=== PATIENT | male | born 1950 | race Caucasian/White ===

== ENCOUNTER 2016-07-11 09:00 | Inpatient (IN) ==
[2016-07-06 12:47] LABS: Basophils # (Auto) 0 K/mcL (0.0-0.3); Basophils % (Auto) 0.2 % (0.0-2.0); Eosinophils # (Auto) 0.2 K/mcL (0.0-0.7); Granulocytes % (Auto) 60.9 % (38.0-78.0); Lymphocytes # (Auto) 2.4 K/mcL (1.5-4.8); Lymphocytes % (Auto) 26.8 % (15.5-49.0); Mean Cell Volume 93.1 fL (80.0-100.0); Mean Corpuscular Hemoglobin 30.7 pg (26.0-34.0); Monocytes # (Auto) 0.9 K/mcL (0.1-0.9); Monocytes % (Auto) 10.1 % (1.0-9.0); Platelet Count 280 K/mcL (140-440); RBC 4.49 M/mcL (4.50-5.90); Red Cell Distribution Width 14.4 % (11.5-14.5)
[2016-07-06 12:57] LABS: Appearance,Urine HAZY; Bacteria,Urine FEW /hpf (0); Bilirubin,Urine NEG (NEG); Color,Urine YELLOW; Glucose,Urine (UA) NEGATIVE (NEG); Leukocyte Esterase,Urine 25 /uL (NEG); Mucus,Urine FEW /hpf (0); Nitrate,Urine NEG (NEG); Protein,Urine NEG (NEG); Specific Gravity,Urine 1.017 (1.000-1.035); Urine Blood NEG mg/dL (<0.03); Urine Hyaline Cast 3 /lpf (0-2); Urine RBC 2 /hpf (0-1); Urine Squamous Epithelial Cell 0 /hpf (0-4); Urine WBC 7 /hpf (0-4); Urobilinogen,Urine NEG (NEG)
[2016-07-06 13:58] LABS: Blood Urea Nitrogen 20 mg/dl (8-23)
[~2016-07-11 09:00] MED LIST: CELECOXIB 200 MG CAPSULE PO SCH; PREGABALIN 150 MG CAPSULE PO SCH; ceFAZolin 1 GM VIAL IV SCH; oxyCODONE 10 MG TAB.ER.12H PO SCH
[2016-07-11 10:08] LABS: Appearance,Urine CLEAR; Bilirubin,Urine NEG (NEG); Color,Urine YELLOW; Glucose,Urine (UA) NEGATIVE (NEG); Leukocyte Esterase,Urine NEG /uL (NEG); Nitrate,Urine NEG (NEG); Protein,Urine NEG (NEG); Specific Gravity,Urine 1.019 (1.000-1.035); Urine Blood NEG mg/dL (<0.03); Urobilinogen,Urine NEG (NEG)
[2016-07-11] MEDS ORDERED: SCOPOLAMINE 1 PATCH PATCH TOPICAL ONE (12:41)
[2016-07-11] MEDS ORDERED: LIDOCAINE HCL/PF 100 MG/5 ML SYRINGE IV ONE (13:00)
[2016-07-11] MEDS ORDERED: PROPOFOL 200 MG/20 ML VIAL IV ONE (13:00)
[2016-07-11] MEDS ORDERED: TRANEXAMIC ACID 1,000 MG/10 ML VIAL IV ONE (13:00)
[2016-07-11] MEDS ORDERED: METOCLOPRAMIDE 10 MG/2 ML VIAL IV ONE (13:00)
[2016-07-11] MEDS ORDERED: KETAMINE 100 MG/ML ML IV ONE (13:00)
[2016-07-11] MEDS ORDERED: ONDANSETRON 4 MG/2 ML VIAL IV ONE (13:00)
[2016-07-11] MEDS ORDERED: DEXAMETHASONE 10 MG/ML VIAL IV ONE (13:00)
[2016-07-11] MEDS ORDERED: ROPIVACAINE HCL/PF 30 ML VIAL IJ ONE (13:00)
[2016-07-11] MEDS ORDERED: GLYCOPYRROLATE 0.2 MG/ML VIAL IV ONE (13:00)
[2016-07-11] MEDS ORDERED: MIDAZOLAM 5 MG/5 ML VIAL IV ONE (13:00)
[2016-07-11] MEDS ORDERED: PROMETHAZINE 25 MG/ML VIAL IV ONE (13:00)
[2016-07-11] MEDS ORDERED: fentaNYL 100 MCG/2 ML VIAL IV ONE ×2 (13:00→14:40)
[2016-07-11] MEDS ORDERED: GENTAMICIN SULFATE 800 MG/20 ML VIAL IR ONE (14:10)
[2016-07-11] MEDS ORDERED: IPRATROPIUM/ALBUTEROL 3 ML AMPUL.NEB NEB PRN (14:40)
[2016-07-11] MEDS ORDERED: ePHEDrine 50 MG/ML AMPUL IV PRN (14:40)
[2016-07-11] MEDS ORDERED: fentaNYL 100 MCG/2 ML VIAL IV PRN (14:40)
[2016-07-11] MEDS ORDERED: BENZOCAINE/MENTHOL 1 LOZENGE PO PRN ×2 (14:40→15:22)
[2016-07-11] MEDS ORDERED: METHOCARBAMOL 1,000 MG/10 ML VIAL IV PRN (14:40)
[2016-07-11] MEDS ORDERED: PROMETHAZINE 25 MG/ML VIAL IV PRN ×2 (14:40→15:22)
[2016-07-11] MEDS ORDERED: KETOROLAC 15 MG/ML VIAL IV ONE (14:40)
[2016-07-11] MEDS ORDERED: MEPERIDINE 25 MG/ML SYRINGE IV PRN (14:40)
[2016-07-11] MEDS ORDERED: LACTATED RINGERS 1,000 ML IV SCH (14:45)
--- NOTE | 2016-07-11 15:20 | Brief Operative Note ---
Date of procedure: 07/11/16 Pre-op diagnosis: left shoulder advanced oa, biceps tendonitis Post-op diagnosis: other (with rotator cuff tear) Procedure: left total shoulder arthroplasty, biceps tenodesis, rotator cuff repair Grafts/Implants: Yes Anesthesia: GETA Complications: none Surgeon: Hal Dempsey Cpc: Kleber Brooke Estimated blood loss (cc): 200 Specimens Removed/Pathology: none sent Condition: stable Disposition: PACU
[2016-07-11] MEDS ORDERED: ONDANSETRON ODT 4 MG TABLET SL PRN (15:22)
[2016-07-11] MEDS ORDERED: MAGNESIUM HYDROXIDE 30 ML ORAL.SUSP PO PRN (15:22)
[2016-07-11] MEDS ORDERED: METHOCARBAMOL 750 MG TABLET PO PRN (15:22)
[2016-07-11] MEDS ORDERED: ONDANSETRON 4 MG/2 ML VIAL IV PRN (15:22)
[2016-07-11] MEDS ORDERED: POLYETHYLENE GLYCOL 3350 17 GM PACKET PO PRN (15:22)
[2016-07-11] MEDS ORDERED: FLEETS ADULT ENEMA PR PRN (15:22)
[2016-07-11] MEDS ORDERED: HYDROmorphone 2 MG/ML SYRINGE IV PRN (15:22)
[2016-07-11] MEDS ORDERED: KETOROLAC 15 MG/ML VIAL IV PRN (15:22)
[2016-07-11] MEDS ORDERED: BISACODYL 10 MG SUPP.RECT PR PRN (15:22)
--- NOTE | 2016-07-11 15:22 | Discharge Summary ---
Ortho Discharge Plan - General - Patient Instructions Diet: Regular Diet Activity: non weight bearing Dressing Care: May shower in 2 days - Follow Up Plan Disposition: Home, Self-Care Prognosis: Good Rehab Potential: Good I certify that the patient requires SNF services: No Overall status at discharge: patient is progressing back to baseline
[2016-07-11] MEDS ORDERED: TRANEXAMIC ACID 1,000 MG/10 ML VIAL IV SCH (15:28)
[2016-07-11] MEDS ORDERED: ACETAMINOPHEN 1,000 MG/100 ML BOTTLE IV SCH (16:00)
--- NOTE | 2016-07-11 16:45 | XRay Report ---
CLINICAL INFORMATION: Postop total shoulder prostheses COMPARISON: None. FINDINGS: Shoulder prostheses is anatomically aligned. No osseous abnormality. Soft tissue swelling seen as expected. IMPRESSION: Negative Interpreted and Authenticated by: Hal Suárez 07/11/16
--- NOTE | 2016-07-11 17:18 | Operative Note ---
DATE OF OPERATION: 07/11/2016 PREOPERATIVE DIAGNOSES: 1. Left shoulder osteoarthritis. 2. Left shoulder proximal biceps tendinitis. 3. Left shoulder acromioclavicular joint osteoarthritis. POSTPERATIVE DIGNOSES: 1. Left shoulder osteoarthritis. 2. Left shoulder proximal biceps tendinitis. 3. Left shoulder acromioclavicular joint osteoarthritis. 4. Rotator cuff tear. PROCEDURE: 1. Left total shoulder arthroplasty. 2. Left shoulder proximal biceps soft tissue tenodesis. 3. Left shoulder distal clavicle excision, open. 4. Left shoulder open rotator cuff repair. SURGEON: González Dempsey M.D. SUPPORT ASSOCIATE SURGEON: Kleber Brooke PA-C. ANESTHESIA: General. ESTIMATED BLOOD LOSS: 200 mL. COMPLICATIONS: None noted. SPECIMENS REMOVED: None. DRAINS: None. IMPLANTS: DePuy CMW2 bone cement 20 grams; DePuy [employer] [place] Peg Glenoid Premieron X-Linked polyethylene size 52; [employer] Unite [place] standard stem size 14; DePuy [employer] Unite standard humeral head size 52 x 18; DePuy [employer] Unite anatomic proximal body 136 degrees size 14 Porocoat; Arthrex 5.5 BioComposite corkscrew FT anchor x1; Arthrex 3.5 mm Peek PushLock x3. INDICATIONS: The patient has had a long-standing history of worsening pain in the shoulder that has failed conservative treatment. Radiographs have confirmed advanced degenerative joint disease. After a long discussion about treatment options, the patient elected to proceed with a total shoulder arthroplasty. The risks and benefits were discussed with the patient in detail including, but not limited to, the risks of anesthesia, problems with the heart or lungs related to anesthesia, infection, compromise or injury to the nerves and blood vessels, deep venous thrombosis, pulmonary embolism, pneumonia, continued pain after surgery, worsening pain or symptoms after surgery, swelling, loss of motion, instability, fracture, arm length discrepancy, and need for repeat surgery. DESCRIPTION OF PROCEDURE: The patient was seen in the pre-anesthesia waiting room where all questions were answered and the correct side and site were identified and marked. The patient was transferred to the operating room and administered the anesthetic and given pre-operative antibiotics. A time-out was then called. The patient was placed in the modified beach chair position with all prominences well padded. The extremity was prepped and draped from the fingers up to the neck. A standard deltopectoral skin incision was created. We dissected up to the acromioclavicular joint. We placed Sanchez retractors. We split the acromioclavicular joint and dissected about 2 cm medially on the distal clavicle and subperiosteally elevated anteriorly and posteriorly. We used the oscillating saw and removed about 7 mm of bone from the distal clavicle. This was removed. All bleeding was controlled with Bovie electrocautery, and we used a #1 Vicryl to suture the fascia overlying the top into the capsule. Dissection was carried down to the deltopectoral groove and the cephalic vein was isolated medially and retracted laterally with the deltoid. Retractors were placed and the coracobrachialis was split up to the coracoacromial ligament allowing retraction of the conjoined tendon. We split the subscapularis 1 cm medial to the bicipital groove and extended the split into the rotator interval. We visualized the rotator cuff and it was found to have a nondisplaced tear of the supraspinatus tendon with no significant retraction. It was about 90% on the bursal side. I elected to proceed with repair and felt this was a repairable tear rather than proceeding with a reverse total shoulder arthroplasty. We used a bur to scuff up the bone. We then placed one 5.5 BioComposite corkscrew FT anchor medially. We brought sutures up with a free needle into the cuff. We tied this down along the medial row. We then placed three 3.5 mm Peek PushLocks along the lateral row securing the repair down nicely. This was tagged for later repair. The biceps was cut and a soft tissue tenodesis was performed into the anterior shoulder with #2 FiberWire. A capsular release was performed in a posterior subperiosteal direction along the humerus. The humeral head was then dislocated. We established intramedullary access and hand reamed up to get good cortical chatter with the digiSchooluy JoGuru AP total shoulder instrumentation. We then used the intramedullary guide and set to about 30 degrees of retroversion. The proximal humerus cut was performed and osteophytes were removed. A metal protector plate was then placed. Attention was then turned to the glenoid. Retractors were placed for optimal visualization and the labrum was excised in its entirety. A centralizing Steinmann pin was placed just into the posterior inferior quadrant in a standard fashion. We reamed over the pin to remove all the cartilage and get to a good base for the prosthesis. The drill was then placed over for the central peg. The glenoid was sized and surface was inspected to confirm conformity. The template base-plate was used to drill the three additional pegs, anchoring each with the anti-rotation peg. All bleeding was stopped with epinephrine soaked sponges. Next, we then cemented the anchor peg glenoid with DBX bone paste placed around the anchor peg and Palacos cement in the three additional peg holes. We allowed the cement to harden and checked the stability and placement of the glenoid. Attention was then turned back to the humerus. We set version and broached up to a stable implant. The humeral head trial was placed and good tension, motion, and stability were obtained at this point. Trials were removed and the final press fit humeral prosthesis was impacted into place with measured version. A final check confirmed adequate motion, tension, and stability. We irrigated with 3 liters of antibiotic saline and closed the subscapularis with #2 FiberWire. We irrigated again and closed the deltopectoral interval with several 0 Vicryl figure of eight sutures. The subcutaneous layer was closed with 2-0 Vicryl and the skin was closed with 4-0 Monocryl in a subcuticular fashion. A sterile pressure dressing was applied and the patient was placed into an abduction sling. All needle and sponge counts were correct. The patient was transferred to the recovery room in stable condition. Cleve Job ID: [id number] Doc ID: [id number] González Dempsey MD
[2016-07-11] MEDS: 0.9 % SODIUM CHLORIDE 1,000 ML IV SCH (17:35)
[2016-07-11] MEDS: FERROUS SULFATE 325 MG TABLET PO SCH (17:50)
[2016-07-11] MEDS: DOCUSATE SODIUM 100 MG CAPSULE PO SCH (20:29)
[2016-07-11] MEDS: ceFAZolin 1 GM VIAL IV SCH (20:29)
[2016-07-11] MEDS: ASPIRIN 81 MG TAB.CHEW CHEWED SCH (20:29)
[2016-07-11] MEDS: METOPROLOL TARTRATE 25 MG TABLET PO SCH (20:29)
[2016-07-11] MEDS ORDERED: SIMVASTATIN 20 MG TABLET PO SCH (21:00)
[2016-07-11] MEDS ORDERED: SENNOSIDES 1 TABLET PO SCH (21:00)
[2016-07-11] MEDS: 0.9 % SODIUM CHLORIDE 10 ML SYRINGE IV SCH (21:17)
[2016-07-12] MEDS: 0.9 % SODIUM CHLORIDE 1,000 ML IV SCH ×3 (00:39→06:30)
[2016-07-12] MEDS: HYDROcodone/APAP 10/325MG TABLET PO PRN ×2 (04:01→08:14)
[2016-07-12] MEDS: ceFAZolin 1 GM VIAL IV SCH (04:04)
[2016-07-12] MEDS: 0.9 % SODIUM CHLORIDE 10 ML SYRINGE IV SCH (05:36)
--- NOTE | 2016-07-12 07:20 | Orthopedic Progress Note ---
Subjective Patient information: Note initiated : 07/12/16 at 7:19 am Service Date, if different from initiated Date: [] Patient: Markel Arrieta 66 y/o M admitted on 07/11/16 for Left Total Shoulder Arthroplasty, DCE and Possible. Chief Complaint: [] Principal diagnosis: left total shoulder arthroplasty Interval history: Doing great. No pain, ready for DC home Objective Vital signs: Vital Signs Temp Pulse Resp BP Pulse Ox 07/12/16 06:36 95.8 F L 18 120/69 95 07/12/16 04:00 97.7 F 81 18 127/73 94 07/11/16 22:51 97.9 F 71 20 123/69 95 07/11/16 20:28 76 134/72 97 07/11/16 20:00 96 07/11/16 19:28 73 113/75 96 07/11/16 18:58 70 124/74 98 07/11/16 18:28 71 128/73 98 07/11/16 18:13 61 103/70 97 07/11/16 17:57 73 130/76 97 07/11/16 17:42 79 134/87 97 07/11/16 17:20 79 13 124/75 96 07/11/16 17:17 75 12 144/73 95 07/11/16 17:02 72 11 L 132/86 96 07/11/16 16:47 72 12 139/81 95 07/11/16 16:32 71 10 L 124/82 96 07/11/16 16:17 77 10 L 122/67 95 07/11/16 16:02 78 10 L 114/73 95 07/11/16 15:49 97.3 F L 80 11 L 146/106 96 07/11/16 10:15 98.0 F 60 18 146/79 97 Intake and Output 07/11/16 07/12/16 07/12/16 21:59 05:59 13:59 Intake Total 2300 / 2300 1640 / 1640 Output Total 600 / 600 350 / 350 Balance 2300 / 2300 1040 / 1040 -350 / -350 Intake: IV 1000 / 1000 Sodium Chloride 0.9% 1, 1000 / 1000 000 ml @ 125 mls/hr IV . Q8H [facility] Rx#:[id number] Oral 640 / 640 IV - Manual Only 2300 / 2300 Output: Void Amount 600 / 600 350 / 350 Other: Weight 241 lb Intake & Output: Intake & Output 07/11/16 07/12/16 07/12/16 21:59 05:59 13:59 Intake Total 2300 / 2300 1640 / 1640 Output Total 600 / 600 350 / 350 Balance 2300 / 2300 1040 / 1040 -350 / -350 Weight 241 lb Intake: IV 1000 / 1000 Sodium Chloride 0.9% 1, 1000 / 1000 000 ml @ 125 mls/hr IV . Q8H [facility] Rx#:[id number] Oral 640 / 640 IV - Manual Only 2300 / 2300 Output: Void Amount 600 / 600 350 / 350 Incision: Yes clean and dry Dressing: Yes clean, Yes dry, Yes intact, Yes splint in place Weight bearing status: non Neurological exam IM: Yes alert, Yes oriented X3, Yes motor sensory intact, Yes neurovascular intact Extremities exam IM: No calf tenderness, Yes normal capillary refill, No John' s sign, Yes neurovascular intact - Periperhal Pulses Peripheral pulses: 2+: radial (L), radial (R) - Labs CBC & BMP: 07/12/16 05:35 07/06/16 10:18 Labs: 07/12/16 07/06/16 05:35 10:18 Hgb 11.0 L 13.8 Hct 32.8 L 41.8 Assessment and Plan (1) Shoulder joint replacement status PO Day 1 s/p left TSA DC Home Status: Acute Qualifiers: Laterality: unspecified laterality Qualified Code(s): Z96.619 - Presence of unspecified artificial shoulder joint
[2016-07-12] MEDS: METOPROLOL TARTRATE 25 MG TABLET PO SCH (08:14)
[2016-07-12] MEDS: FERROUS SULFATE 325 MG TABLET PO SCH (08:14)
[2016-07-12] MEDS: ASPIRIN 81 MG TAB.CHEW CHEWED SCH (08:14)
[2016-07-12] MEDS: DOCUSATE SODIUM 100 MG CAPSULE PO SCH (08:14)
[2016-07-12] MEDS ORDERED: HYDROCHLOROTHIAZIDE 25 MG TABLET PO SCH (09:00)
== END 2016-07-12 10:20 | disposition home or self-care (01) | DRG 483 ==
LOC: MEDSUR 09:00
PROVIDERS: ADMIT Orthopaedic Surgery Sports Medicine; ATTEND Orthopaedic Surgery Sports Medicine